=== PATIENT | female | born 1985 | race Caucasian/White ===

== ENCOUNTER 2021-05-20 12:37 | Emergency (ER) | payer OTHER ==
[~2021-05-20] VITALS: Ht 165.1 cm; Wt 90.9 kg
[2021-05-20] MEDS ORDERED: METOCLOPRAMIDE HCL 5 MG/ML 2 ML VIAL IVP ONE (16:00)
[2021-05-20] MEDS ORDERED: DiphenhydrAMINE HCL 50 MG/ML VIAL IVP ONE (16:00)
[2021-05-20] MEDS ORDERED: SODIUM CHLORIDE 0.9% 1,000 ML IV ONE (16:00)
[2021-05-20 17:42] VITALS: BP 162/100
== END 2021-05-20 18:46 | disposition home or self-care (01) ==
LOC: EMS 12:42
DX: G43.909 Migraine, unspecified, not intractable, without status migrainosus (principal); I10 Essential (primary) hypertension; F17.210 Nicotine dependence, cigarettes, uncomplicated
CPT/HCPCS: 81025; 96361; 96374; 96375; 99284; J1200; J2765; J7030

== ENCOUNTER 2022-04-01 05:55 | Emergency (ER) | payer OTHER ==
[~2022-04-01] VITALS: Ht 162.6 cm; Wt 97.7 kg
[2022-04-01] MEDS ORDERED: IBUP-1506 PO (06:09)
[2022-04-01] MEDS ORDERED: TOPI25 PO (06:09)
[2022-04-01] MEDS ORDERED: SUMA100T PO (06:09)
[2022-04-01] MEDS ORDERED: ONDA-104 PO (06:09)
[2022-04-01] MEDS ORDERED: AMLO-258 PO (06:09)
[2022-04-01] MEDS ORDERED: AMIT-166 PO (06:09)
[2022-04-01] MEDS ORDERED: SODIUM CHLORIDE 0.9% 1,000 ML IV ONE (07:15)
[2022-04-01] MEDS ORDERED: DiphenhydrAMINE HCL 50 MG/ML VIAL IVP ONE (07:15)
[2022-04-01] MEDS ORDERED: METOCLOPRAMIDE HCL 5 MG/ML 2 ML VIAL IVP ONE (07:15)
[2022-04-01] MEDS ORDERED: KETOROLAC TROMETHAMINE 30 MG/ML VIAL IVP ONE (07:15)
[2022-04-01 08:11] LABS: BASOPHILS % (AUTO) 0.8 % (0.0-2.0); HEMATOCRIT 38.4 % (36-46); HEMOGLOBIN 12.9 g/dL (12.0-16.0); LYMPHOCYTES # (AUTO) 1.9 K/uL (1.0-4.8); LYMPHOCYTES % (AUTO) 29.9 % (22.0-44.0); MEAN CORPUSCULAR HEMOGLOBIN 30.8 pg (26.0-34.0); MEAN CORPUSCULAR HGB CONC 33.5 G/dL (31.0-37.0); MEAN CORPUSCULAR VOLUME 92 fL (80-100); MONOCYTES # (AUTO) 0.5 K/uL (0.1-1.0); MONOCYTES % (AUTO) 8.3 % (2.0-9.0); NEUTROPHILS # (AUTO) 3.8 K/uL (1.8-7.7); RED BLOOD CELL COUNT(AUTO) 4.18 MIL/uL (4.00-5.20); RED CELL DISTRIBUTION WIDTH 13.3 % (11.5-14.5)
[2022-04-01 08:20] LABS: ANION GAP 10 mmol/L (8-16); CALCIUM, TOTAL 8.8 mg/dL (8.8-10.5); CARBON DIOXIDE 23 mmol/L (22-29); CHLORIDE 108 mmol/L (98-107); CREATININE 0.99 mg/dL (0.60-1.30); GLUCOSE,RANDOM 96 mg/dL (70-110); POTASSIUM 3.6 mmol/L (3.5-5.1); SODIUM SERUM 141 mmol/L (136-145); UREA NITROGEN, BLOOD 15 mg/dL (7-18)
[2022-04-01 08:22] LABS: GLOMERULAR FILTR. RATE CALC > 60 mL/min (>60)
[2022-04-01 08:28] LABS: ALANINE AMINOTRANSFERASE 19 U/L (12-78); ALBUMIN 3.4 g/dL (3.4-5.0); ALKALINE PHOSPHATASE 57 U/L (46-116); ASPARTATE AMINOTRANSFERASE 11 U/L (15-37); BILIRUBIN,TOTAL 0.3 mg/dL (0.1-1.0); TOTAL PROTEIN, SERUM 6.4 g/dL (6.4-8.2)
[2022-04-01 08:36] LABS: PLATELET COUNT (AUTO) 185 K/uL (150-450); PLATELET MORPHOLOGY COMMENT GIANT PLTS PRESENT
[2022-04-01 09:34] VITALS: BP 129/75
[2022-04-01] MEDS ORDERED: METO-296 PO (09:53)
[2022-04-01] MEDS ORDERED: HYDR-4723 PO (09:53)
== END 2022-04-01 10:16 | disposition home or self-care (01) ==
LOC: EMS 05:57
DX: G43.909 Migraine, unspecified, not intractable, without status migrainosus (principal); I10 Essential (primary) hypertension; Z98.890 Other specified postprocedural states; Z88.8 Allergy status to other drugs, medicaments and biological substances
CPT/HCPCS: 99284; 96374; 96375; 96361; 80053; 84703; 85025; 36415; J1200; J1885; J2765; J7030

== ENCOUNTER → 2022-04-20 | Outpatient (CLI) | payer OTHER ==
[~2022-04-20] MED LIST: AMIT-166 PO; AMLO-258 PO; HYDR-4723 PO; IBUP-1506 PO; METO-296 PO; ONDA-104 PO; SUMA100T PO; TOPI25 PO
== END | disposition home or self-care (01) ==
LOC: RADMN 08:45
DX: N83.02 Follicular cyst of left ovary (principal); N83.01 Follicular cyst of right ovary; N88.8 Other specified noninflammatory disorders of cervix uteri; R10.2 Pelvic and perineal pain
CPT/HCPCS: 72195

== ENCOUNTER 2022-06-02 10:50 | Emergency (ER) | payer OTHER ==
[~2022-06-02] VITALS: Ht 162.6 cm; Wt 97.7 kg
[2022-06-02 12:46] LABS: BASOPHILS % (AUTO) 0.9 % (0.0-2.0); EOSINOPHILS % (AUTO) 2.3 % (1.0-6.0); HEMATOCRIT 38.7 % (36-46); HEMOGLOBIN 12.7 g/dL (12.0-16.0); LYMPHOCYTES # (AUTO) 1.9 K/uL (1.0-4.8); LYMPHOCYTES % (AUTO) 33.4 % (22.0-44.0); MEAN CORPUSCULAR HEMOGLOBIN 30.1 pg (26.0-34.0); MEAN CORPUSCULAR HGB CONC 32.8 G/dL (31.0-37.0); MEAN CORPUSCULAR VOLUME 92 fL (80-100); MONOCYTES # (AUTO) 0.4 K/uL (0.1-1.0); MONOCYTES % (AUTO) 7.3 % (2.0-9.0); NEUTROPHILS # (AUTO) 3.2 K/uL (1.8-7.7); NEUTROPHILS % (AUTO) 56.1 % (40.0-70.0); PLATELET COUNT (AUTO) 172 K/uL (150-450); RED BLOOD CELL COUNT(AUTO) 4.22 MIL/uL (4.00-5.20)
[2022-06-02 13:01] LABS: ANION GAP 4 mmol/L (8-16); CALCIUM, TOTAL 9.1 mg/dL (8.8-10.5); CARBON DIOXIDE 25 mmol/L (22-29); CHLORIDE 105 mmol/L (98-107); GLUCOSE,RANDOM 94 mg/dL (70-110); POTASSIUM 3.7 mmol/L (3.5-5.1); SODIUM SERUM 134 mmol/L (136-145); UREA NITROGEN, BLOOD 11 mg/dL (7-18)
[2022-06-02 13:02] LABS: GLOMERULAR FILTR. RATE CALC > 60 mL/min (>60)
[2022-06-02 13:07] LABS: ALANINE AMINOTRANSFERASE 18 U/L (12-78); ALBUMIN 3.8 g/dL (3.4-5.0); ALKALINE PHOSPHATASE 80 U/L (46-116); ASPARTATE AMINOTRANSFERASE 11 U/L (15-37); BILIRUBIN,TOTAL 0.3 mg/dL (0.1-1.0); TOTAL PROTEIN, SERUM 6.9 g/dL (6.4-8.2)
[2022-06-02 14:09] LABS: HCG,QUANTITATIVE < 1 mIU/mL (0-6)
[2022-06-02 14:52] VITALS: BP 136/89
== END 2022-06-02 14:54 | disposition home or self-care (01) ==
LOC: EMS 10:58
DX: F41.9 Anxiety disorder, unspecified (principal); R06.02 Shortness of breath; I10 Essential (primary) hypertension; Z88.5 Allergy status to narcotic agent; Z79.899 Other long term (current) drug therapy
CPT/HCPCS: 80053; 84484; 84702; 85025; 93005; 99284